=== PATIENT | male | born 1965 | race Two or more races ===

== ENCOUNTER 2017-06-18 21:18 | Emergency (ER) | payer OTHER ==
[~2017-06-18] VITALS: Ht 185.4 cm; Wt 93.1 kg
[2017-06-18] MEDS ORDERED: ZIPRASIDONE 20 MG INJ IM ONE ×2 (22:00→22:41)
[2017-06-19 01:55] VITALS: BP 145/99
== END 2017-06-19 02:06 | disposition home or self-care (01) ==
LOC: ED 21:50
DX: F29 Unspecified psychosis not due to a substance or known physiological condition (principal); R44.3 Hallucinations, unspecified; F15.129 Other stimulant abuse with intoxication, unspecified
CPT/HCPCS: 96372; 99283; J3486